=== PATIENT | male | born 1980 | race Two or more races ===

== ENCOUNTER 2022-02-17 03:53 | Emergency (ER) | payer MEDICAID ==
[~2022-02-17] VITALS: Ht 177.8 cm; Wt 90.9 kg
[2022-02-17] MEDS ORDERED: LIDOCAINE 1% 10 ML VIAL SQ ONE ×2 (04:45→05:00)
[2022-02-17] MEDS ORDERED: NEOMYCIN/BACITRACIN/POLYMYXIN B OINTMENT PACKET TP ONE (04:45)
[2022-02-17] MEDS ORDERED: PERTUSS(ACELL),DIPH,TET VAC/PF 0.5 ML SYRINGE IM. ONE (04:45)
[2022-02-17] MEDS ORDERED: POVIDONE-IODINE 10% 15 ML SOLUTION UD ONE (04:59)
[2022-02-17] MEDS ORDERED: POVIDONE-IODINE 10% 120 ML SOLUTION TP ONE (05:00)
[2022-02-17] MEDS ORDERED: IBUPROFEN 600 MG TABLET PO ONE (05:00)
[2022-02-17] MEDS ORDERED: BACI28OI29 TP (05:39)
[2022-02-17] MEDS ORDERED: IBUP-1554 PO (05:39)
[2022-02-17] MEDS ORDERED: CEPH-558 PO (05:39)
[2022-02-17 06:05] VITALS: BP 142/84
== END 2022-02-17 06:16 | disposition home or self-care (01) ==
LOC: EMS 03:54
DX: S61.216A Laceration without foreign body of right little finger without damage to nail, initial encounter (principal); S61.214A Laceration without foreign body of right ring finger without damage to nail, initial encounter; S61.212A Laceration without foreign body of right middle finger without damage to nail, initial encounter; W25.XXXA Contact with sharp glass, initial encounter; Y93.39 Activity, other involving climbing, rappelling and jumping off; Y92.89 Other specified places as the place of occurrence of the external cause; Y99.8 Other external cause status; F17.210 Nicotine dependence, cigarettes, uncomplicated; F12.90 Cannabis use, unspecified, uncomplicated; F15.10 Other stimulant abuse, uncomplicated
CPT/HCPCS: 99284; 90715; 90471; 12004; J3490